=== PATIENT | male | born 1970 | race American Indian/Alaskan Native ===

== ENCOUNTER 2020-04-08 09:44 | Emergency (ER) | payer OTHER ==
[2020-04-08] MEDS ORDERED: MECLIZINE 25 MG TAB PO ONE (10:25)
--- NOTE | 2020-04-08 10:28 | Emergency Department Report ---
HPI - General Chief Complaint: Dizziness Time Seen by Provider: 04/08/20 10:11 - HPI HPI: Room 22 The patient is a 50-year-old male present with a chief complaint of dizziness. The patient states she developed dizziness last night while lying in bed at rest. The patient states certain movements of the head will cause dizziness. Patient denies any preceding trauma or fever. Patient denies chest pain, shortness of breath or nausea/vomiting. The patient states he had a similar episode for a few days last month but resolved on its own. When asked how he is feeling currently patient states he feels good ED Past Medical Hx - Past Medical History Previous Medical History?: Yes Additional medical history: Multiple sclerosis. irregular heartbeat - Surgical History Past Surgical History?: No - Family History Family history: no significant - Social History Smoking Status: Current Some Day Smoker (Cigars) Substance Use Type: None (Denies illicit drug use) - Medications Home Medications: Home Medications Medication Instructions Recorded Confirmed Last Taken Type Meclizine [Antivert] 25 mg PO TID PRN #20 tablet 04/08/20 Unknown Rx ED Review of Systems ROS: Stated complaint: DIZZY Other details as noted in HPI Constitutional: denies: fever Respiratory: denies: shortness of breath Cardiovascular: denies: chest pain Endocrine: no symptoms reported Gastrointestinal: denies: nausea, vomiting Neurological: vertigo. denies: headache Physical Exam - Physical Exam Vital Signs: Vital Signs 04/08/20 04/08/20 09:48 10:16 Temperature 98.1 F Pulse Rate 53 L Respiratory 16 18 Rate Blood Pressure 154/96 O2 Sat by Pulse 98 Oximetry Physical Exam: GENERAL: The patient is well-developed well-nourished male lying on stretcher not appearing to be in acute distress. [] HEENT: Normocephalic. Atraumatic. Extraocular motions are intact. Patient has moist mucous membranes. No nystagmus NECK: Supple. No meningitic signs are noted. Trachea midline CHEST/LUNGS: Clear to auscultation. There is no respiratory distress noted. HEART/CARDIOVASCULAR: Regular. There is no tachycardia. There is no gallop rub or murmur. ABDOMEN: Abdomen is soft, nontender. Patient has normal bowel sounds. There is no abdominal distention. SKIN: There is no rash. There is no edema. There is no diaphoresis. NEURO: The patient is awake, alert, and oriented. The patient is cooperative. The patient has no focal neurologic deficits. The patient has normal speech. Cranial nerves II through XII grossly intact. No dysmetria noted with [id number] bilaterally MUSCULOSKELETAL: There is no evidence of acute injury. ED Course Vital Signs 04/08/20 04/08/20 09:48 10:16 Temperature 98.1 F Pulse Rate 53 L Respiratory 16 18 Rate Blood Pressure 154/96 O2 Sat by Pulse 98 Oximetry ED Medical Decision Making - Lab Data Result diagrams: 04/08/20 10:53 04/08/20 10:53 Laboratory Tests 04/08/20 04/08/20 10:53 10:53 WBC 12.1 H RBC 5.07 H Hgb 15.4 H Hct 46.8 H MCV 92 MCH 30 MCHC 33 RDW 15.3 H Plt Count 272 Lymph % (Auto) 32.3 Cole % (Auto) 5.7 Eos % (Auto) 2.0 Baso % (Auto) 0.5 Lymph # (Auto) 3.9 Cole # (Auto) 0.7 Eos # (Auto) 0.2 Baso # (Auto) 0.1 Seg Neutrophils % 59.5 Seg Neutrophils # 7.2 Sodium 143 Potassium 4.1 Chloride 105.3 Carbon Dioxide 24 Anion Gap 18 BUN 7 L Creatinine 0.8 Estimated GFR > 60 BUN/Creatinine Ratio 9 Glucose 80 Calcium 9.6 Total Creatine Kinase 227 H CK-MB (CK-2) 1.4 CK-MB (CK-2) Rel Index 0.6 Troponin T < 0.010 - EKG Data -: EKG Interpreted by Fl Rate: bradycardia (57 bpm) - EKG Data When compared to previous EKG there are: previous EKG unavailable Interpretation: other (PACs) - Radiology Data Radiology results: report reviewed (CT head), image reviewed (CT head) [facility] [address] [place] [address] Cat Scan Report Signed Patient: HANS CASTLE MR#: [id number] : 1970 Acct:[id number] Age/Sex: 50 / M ADM Date: 04/08/20 Loc: ED Attending Dr: Ordering Physician: JIM SMITH MD Date of Service: 04/08/20 Procedure(s): CT head/brain wo con Accession Number(s): [id number] cc: JIM SMITH MD . CT head/brain wo con INDICATION / CLINICAL INFORMATION: 50 years Male; Dizziness. TECHNIQUE: Routine CT head without contrast. All CT scans at this location are performed using CT dose reduction for ALARA by means of automated exposure control. COMPARISON: None. FINDINGS: BRAIN / INTRACRANIAL CONTENTS: Low density area seen in the jovany, most likely related to streak artifact. Otherwise, no acute hemorrhage, mass effect, midline shift, hydrocephalus, or acute, large territorial infarct. No chronic infarct or atrophy appreciated. No significant white matter abnormality. CRANIOCERVICAL JUNCTION: No significant abnormality. ORBITS: No significant abnormality of visualized orbits. SINUSES / MASTOIDS: No significant abnormality in the visualized paranasal sinuses or mastoid air cells. ADDITIONAL FINDINGS: Subcutaneous sebaceous cyst suggested superficial left parietal bone-of no clinical significance. Prominent soft tissue is seen in the roof the nasopharynx, presumably related to reactive adenoidal tissue. Please clinically correlate. IMPRESSION: 1. No focal mass, hemorrhage, hydrocephalus, or acute, large territorial infarct. Follow-up with diffusion karo ging by MRI, as clinically warranted. Signer Name: Kev Samano MD, III Signed: 04/08/2020 10:54 AM Workstation Name: [id number] Transcribed By: HR Dictated By: Kev Samano MD Electronically Authenticated By: Kev Samano MD Signed Date/Time: 04/08/20 1054 DD/ 1052 TD/TT: - Differential Diagnosis Vertigo, MS flare, cerebellar mass, intracranial hemorrhage Critical care attestation.: If time is entered above; I have spent that time in minutes in the direct care of this critically ill patient, excluding procedure time. ED Disposition Clinical Impression: Vertigo Disposition: DC-01 TO HOME OR SELFCARE Is pt being admited?: No Does the pt Need Aspirin: No Condition: Stable Instructions: Vertigo (ED), Dizziness (ED) Additional Instructions: Return to the emergency department should you develop worsening symptoms, inability to tolerate food or liquids, high fever or any other concerns Prescriptions: Meclizine [Antivert] 25 mg PO TID PRN #20 tablet PRN Reason: Vertigo Referrals: PRIMARY CARE, [Primary Care Provider] - 3-5 Days Time of Disposition: 12:30
--- NOTE | 2020-04-08 10:59 | Cat Scan Report ---
. CT head/brain wo con INDICATION / CLINICAL INFORMATION: 50 years Male; Dizziness. TECHNIQUE: Routine CT head without contrast. All CT scans at this location are performed using CT dos e reduction for ALARA by means of automated exposure control. COMPARISON: None. FINDINGS: BRAIN / INTRACRANIAL CONTENTS: Low density area seen in the jovany, most likely related to streak artif act. Otherwise, no acute hemorrhage, mass effect, midline shift, hydrocephalus, or acute, large territori al infarct. No chronic infarct or atrophy appreciated. No significant white matter abnormality. CRANIOCERVICAL JUNCTION: No significant abnormality. ORBITS: No significant abnormality of visualized orbits. SINUSES / MASTOIDS: No significant abnormality in the visualized paranasal sinuses or mastoid air kim ls. ADDITIONAL FINDINGS: Subcutaneous sebaceous cyst suggested superficial left parietal bone-of no clini danielle significance. Prominent soft tissue is seen in the roof the nasopharynx, presumably related to reactive adenoidal t issue. Please clinically correlate. IMPRESSION: 1. No focal mass, hemorrhage, hydrocephalus, or acute, large territorial infarct. Follow-up with diff usion imaging by MRI, as clinically warranted. Signer Name: Kev Samano MD, III Signed: 04/08/2020 10:54 AM Workstation Name: [id number]
[2020-04-08 11:32] LABS: Basophils # (Auto) 0.1 K/mm3 (0.0-0.1); Basophils % (Auto) 0.5 % (0.0-1.8); Eosinophils # (Auto) 0.2 K/mm3 (0.0-0.4); Hematocrit 46.8 % (35.5-45.6); Hemoglobin 15.4 gm/dl (11.8-15.2); Lymphocytes # (Auto) 3.9 K/mm3 (1.2-5.4); Lymphocytes % (Auto) 32.3 % (13.4-35.0); Mean Corpuscular HGB Conc 33 % (32-34); Mean Corpuscular Volume 92 fl (84-94); Monocytes # (Auto) 0.7 K/mm3 (0.0-0.8); Monocytes % (Auto) 5.7 % (0.0-7.3); Platelet Count 272 K/mm3 (140-440); Red Blood Count 5.07 M/mm3 (3.65-5.03); Red Cell Distribution Width 15.3 % (13.2-15.2)
[2020-04-08 12:03] LABS: Creatine Kinase MB 1.4 ng/mL (0.0-4.0)
[2020-04-08 12:04] LABS: BUN/Creatinine Ratio 9; Blood Urea Nitrogen 7 mg/dL (9-20); Calcium 9.6 mg/dL (8.4-10.2); Hemolysis Index 35
[2020-04-08 13:15] VITALS: BP 174/89
== END 2020-04-08 13:16 | disposition home or self-care (01) ==
LOC: ED 09:44
DX: R42 Dizziness and giddiness (principal); F17.200 Nicotine dependence, unspecified, uncomplicated; Z79.899 Other long term (current) drug therapy
CPT/HCPCS: 36415; 70450; 80048; 82550; 82553; 84484; 85025; 93005